=== PATIENT | male | born 1975 ===

== ENCOUNTER 2022-08-01 19:35 | Emergency (ER) | payer SELFPAY ==
[2022-08-01] MEDS ORDERED: Lidocaine 2% PF 5 ML VIAL ONE ×2 (20:54→21:01)
[2022-08-01] MEDS ORDERED: CEFAZOLIN 1 GM VIAL ONE (20:56)
[2022-08-01] MEDS ORDERED: Ketorolac Tromethamine 30 MG/ML VIAL ONE (21:10)
[2022-08-01] MEDS ORDERED: Rabies Vaccine Human 2.5 UNITS VIAL ONE (21:11)
[2022-08-01] MEDS ORDERED: Boostrix 0.5 ML (Tdap) VIAL (>/=7 yrs of age) ONE (21:11)
== END 2022-08-01 23:30 | disposition home or self-care (01) ==
LOC: ERS 19:35
DX: S61.452A Open bite of left hand, initial encounter (principal); S66.222A Laceration of extensor muscle, fascia and tendon of left thumb at wrist and hand level, initial encounter; I10 Essential (primary) hypertension; E11.9 Type 2 diabetes mellitus without complications; Z79.84 Long term (current) use of oral hypoglycemic drugs; Z79.899 Other long term (current) drug therapy; W54.0XXA Bitten by dog, initial encounter
CPT/HCPCS: 12001; 26410; 90375; 90471; 90472; 90675; 90715; 96372; J0690; J1885; J2001

== ENCOUNTER → 2022-08-08 | Day surgery (SDC) | payer SELFPAY ==
[~2022-08-08] MED LIST: Rabies Vaccine Human 2.5 UNITS VIAL ONE
== END | disposition home or self-care (01) ==
LOC: ER/OP 12:21
DX: Z23 Encounter for immunization (principal)
CPT/HCPCS: 90471; 90675

== ENCOUNTER 2022-08-09 19:17 | Emergency (ER) | payer SELFPAY | END 2022-08-09 20:33 | disposition home or self-care (01) | LOC: ERS 19:17 | DX: Z48.02 Encounter for removal of sutures (principal) ==